=== PATIENT | female | born 1955 | race Two or more races ===

== ENCOUNTER 2022-12-16 02:11 | Inpatient (IN) | payer MEDICARE ==
[2022-12-16] MEDS ORDERED: oxyCODONE 5 MG Tab PO PRN (04:34)
[2022-12-16] MEDS ORDERED: Naloxone 0.4 MG/ML SDV IVPUSH PRN (04:34)
[2022-12-16] MEDS ORDERED: Ondansetron 4 MG Tab.DIS PO PRN (04:34)
[2022-12-16] MEDS ORDERED: Morphine 2 MG/ML SYRINGE IVPUSH PRN (04:34)
[2022-12-16] MEDS ORDERED: Albuterol 0.083% 2.5 MG/3 ML Neb Soln NEB PRN (04:34)
[2022-12-16] MEDS ORDERED: Docusate Sodium 100 MG Cap PO PRN (04:34)
[2022-12-16] MEDS ORDERED: LORazepam 2 MG/ML SDV IV PRN (04:34)
[2022-12-16] MEDS ORDERED: Sodium Chloride 0.9% 10 ML Syringe FLUSH PRN (04:34)
[2022-12-16] MEDS ORDERED: Bisacodyl 5 MG Tab PO PRN (04:34)
[2022-12-16] MEDS ORDERED: methylPREDNISolone Sodium Succinate 40 MG/1 ML SDV IVPUSH SCH (04:45)
[2022-12-16] MEDS: cefTRIAXone 1 GM in Sodium Chloride 0.9% 50 ML IV SCH (04:54)
[2022-12-16] MEDS ORDERED: Albuterol/Ipratropium 3.0-0.5 MG/3 ML Neb Soln NEB SCH ×2 (06:00→07:00)
[2022-12-16] MEDS ORDERED: Enoxaparin 40 MG/0.4 ML Syringe SUBCUT SCH (09:00)
[2022-12-16] MEDS: Nicotine 14 MG/24 Hr Patch TRDERM SCH ×2 (09:58→18:53)
[2022-12-16] MEDS: Enoxaparin 40 MG/0.4 ML Syringe SUBCUT SCH (09:59)
[2022-12-16] MEDS: Losartan 50 MG Tab PO SCH (09:59)
[2022-12-16] MEDS: Metoprolol Tartrate 25 MG Tab PO SCH (09:59)
[2022-12-16] MEDS: amLODIPine 5 MG Tab PO SCH (10:00)
[2022-12-16] MEDS ORDERED: Benzonatate 100 MG Cap PO PRN (10:01)
[2022-12-16 10:04] LABS: HEMATOCRIT 45.2 % (34.3-46.0); HEMOGLOBIN 15.6 g/dL (11.2-15.5); MEAN CORPUSCULAR HEMOGLOBIN 32.3 pg (31.6-35.5); MEAN CORPUSCULAR HGB CONC 34.5 g/dL (31.6-35.5); MEAN CORPUSCULAR VOLUME 93.6 fL (81.4-99.0); RED BLOOD CELL COUNT 4.83 M/uL (3.77-5.24)
[2022-12-16 10:34] LABS: ANION GAP 4.9 mmol/L (5.0-14.0); CALCIUM 8.3 mg/dL (8.5-10.1); CREATININE 0.8 mg/dL (0.6-1.0); EST CRCL DRUG DOSING (CG) 50.79 mL/min; POTASSIUM,K 3.9 mmol/L (3.6-5.2)
[2022-12-16 10:35] LABS: MAGNESIUM 1.8 mg/dL (1.8-2.4); TSH ULTRASENSITIVE 2.501 uIU/mL (0.358-3.740)
[2022-12-16] MEDS: Albuterol/Ipratropium 3.0-0.5 MG/3 ML Neb Soln NEB SCH ×3 (10:51→20:38)
[2022-12-16] MEDS: Azithromycin 500 MG in Sodium Chloride 0.9% 250 ML IV SCH (11:47)
[2022-12-16] MEDS: methylPREDNISolone Sodium Succinate 125 MG/2 ML SDV IVPUSH SCH ×3 (11:52→22:24)
[2022-12-16] MEDS: guaiFENesin 600 MG Tab.ER PO SCH ×2 (15:11→20:37)
[2022-12-16] MEDS ORDERED: diphenhydrAMINE 25 MG Cap PO PRN (17:22)
[2022-12-16] MEDS: Acetaminophen 325 MG Tab PO PRN (20:36)
[2022-12-16] MEDS ORDERED: diphenhydrAMINE 25 MG Cap PO SCH (21:00)
[2022-12-16] MEDS ORDERED: Levofloxacin/Dextrose 5%-Water 750 MG in Premix Bag 1 BAG IV SCH (21:00)
[2022-12-17] MEDS: methylPREDNISolone Sodium Succinate 125 MG/2 ML SDV IVPUSH SCH ×4 (04:45→22:37)
[2022-12-17] MEDS: cefTRIAXone 1 GM in Sodium Chloride 0.9% 50 ML IV SCH (04:48)
[2022-12-17] MEDS: Albuterol/Ipratropium 3.0-0.5 MG/3 ML Neb Soln NEB SCH ×4 (07:03→20:27)
[2022-12-17] MEDS: Codeine/guaiFENesin 10-100 MG/5 ML Syrup 5 ML Cup PO PRN ×2 (07:35→22:36)
[2022-12-17] MEDS: Losartan 50 MG Tab PO SCH (08:32)
[2022-12-17] MEDS: Metoprolol Tartrate 25 MG Tab PO SCH (08:32)
[2022-12-17] MEDS: amLODIPine 5 MG Tab PO SCH (08:32)
[2022-12-17] MEDS: Nicotine 14 MG/24 Hr Patch TRDERM SCH (08:33)
[2022-12-17] MEDS: Enoxaparin 40 MG/0.4 ML Syringe SUBCUT SCH (08:33)
[2022-12-17] MEDS: guaiFENesin 600 MG Tab.ER PO SCH ×3 (08:33→20:13)
[2022-12-17] MEDS: Azithromycin 500 MG in Sodium Chloride 0.9% 250 ML IV SCH (10:27)
[2022-12-17] MEDS: Acetaminophen 325 MG Tab PO PRN (11:49)
[2022-12-17] MEDS ORDERED: LORazepam 2 MG/ML SDV IV PRN (15:06)
[2022-12-17] MEDS: diphenhydrAMINE 25 MG/10 ML Cup PO SCH (20:13)
[2022-12-18] MEDS: cefTRIAXone 1 GM in Sodium Chloride 0.9% 50 ML IV SCH (04:03)
[2022-12-18] MEDS: Codeine/guaiFENesin 10-100 MG/5 ML Syrup 5 ML Cup PO PRN ×2 (04:04→10:29)
[2022-12-18] MEDS: methylPREDNISolone Sodium Succinate 125 MG/2 ML SDV IVPUSH SCH ×4 (04:18→23:13)
[2022-12-18] MEDS: Albuterol/Ipratropium 3.0-0.5 MG/3 ML Neb Soln NEB SCH ×4 (07:26→19:59)
[2022-12-18] MEDS: Losartan 50 MG Tab PO SCH (08:46)
[2022-12-18] MEDS: amLODIPine 5 MG Tab PO SCH (08:47)
[2022-12-18] MEDS: Enoxaparin 40 MG/0.4 ML Syringe SUBCUT SCH (08:47)
[2022-12-18] MEDS: Metoprolol Tartrate 25 MG Tab PO SCH (08:47)
[2022-12-18] MEDS: guaiFENesin 600 MG Tab.ER PO SCH ×3 (08:47→19:59)
[2022-12-18] MEDS: Nicotine 14 MG/24 Hr Patch TRDERM SCH (08:50)
[2022-12-18] MEDS: Azithromycin 500 MG in Sodium Chloride 0.9% 250 ML IV SCH (10:29)
[2022-12-18] MEDS: Pantoprazole 40 MG Tab.CR PO SCH (11:45)
[2022-12-18] MEDS: diphenhydrAMINE 25 MG/10 ML Cup PO SCH (19:59)
[2022-12-19] MEDS: cefTRIAXone 1 GM in Sodium Chloride 0.9% 50 ML IV SCH (05:04)
[2022-12-19] MEDS: methylPREDNISolone Sodium Succinate 125 MG/2 ML SDV IVPUSH SCH ×3 (05:04→22:45)
[2022-12-19] MEDS: Albuterol/Ipratropium 3.0-0.5 MG/3 ML Neb Soln NEB SCH ×4 (07:29→20:23)
[2022-12-19] MEDS: Pantoprazole 40 MG Tab.CR PO SCH (07:49)
[2022-12-19] MEDS: Losartan 50 MG Tab PO SCH (08:23)
[2022-12-19] MEDS: Nicotine 14 MG/24 Hr Patch TRDERM SCH (08:23)
[2022-12-19] MEDS: guaiFENesin 600 MG Tab.ER PO SCH ×3 (08:24→20:23)
[2022-12-19] MEDS: Enoxaparin 40 MG/0.4 ML Syringe SUBCUT SCH (08:24)
[2022-12-19] MEDS: Metoprolol Tartrate 25 MG Tab PO SCH (08:24)
[2022-12-19] MEDS: amLODIPine 5 MG Tab PO SCH (08:24)
[2022-12-19] MEDS: Azithromycin 500 MG in Sodium Chloride 0.9% 250 ML IV SCH (09:59)
[2022-12-19] MEDS: diphenhydrAMINE 25 MG/10 ML Cup PO SCH (20:25)
[2022-12-20] MEDS: cefTRIAXone 1 GM in Sodium Chloride 0.9% 50 ML IV SCH (05:07)
[2022-12-20] MEDS: Albuterol/Ipratropium 3.0-0.5 MG/3 ML Neb Soln NEB SCH ×2 (07:01→10:31)
[2022-12-20] MEDS: Pantoprazole 40 MG Tab.CR PO SCH (07:19)
[2022-12-20] MEDS: guaiFENesin 600 MG Tab.ER PO SCH (08:02)
[2022-12-20] MEDS: Enoxaparin 40 MG/0.4 ML Syringe SUBCUT SCH (08:02)
[2022-12-20] MEDS: Nicotine 14 MG/24 Hr Patch TRDERM SCH (08:02)
[2022-12-20] MEDS: amLODIPine 5 MG Tab PO SCH (08:49)
[2022-12-20] MEDS: Losartan 50 MG Tab PO SCH (08:49)
[2022-12-20] MEDS: Metoprolol Tartrate 25 MG Tab PO SCH (08:49)
[2022-12-20] MEDS: Azithromycin 500 MG in Sodium Chloride 0.9% 250 ML IV SCH (10:19)
[2022-12-20] MEDS: methylPREDNISolone Sodium Succinate 125 MG/2 ML SDV IVPUSH SCH (10:19)
== END 2022-12-20 10:57 | disposition home or self-care (01) | DRG 193 ==
LOC: JP.MS 03:46
PROVIDERS: ADMIT Internal Medicine; ATTEND Hospitalist
DX: J18.9 Pneumonia, unspecified organism (principal); J96.21 Acute and chronic respiratory failure with hypoxia; J44.1 Chronic obstructive pulmonary disease with (acute) exacerbation; J98.11 Atelectasis; J44.0 Chronic obstructive pulmonary disease with (acute) lower respiratory infection; E78.00 Pure hypercholesterolemia, unspecified; I10 Essential (primary) hypertension; K21.9 Gastro-esophageal reflux disease without esophagitis; M19.90 Unspecified osteoarthritis, unspecified site; F17.210 Nicotine dependence, cigarettes, uncomplicated; Z99.81 Dependence on supplemental oxygen; Z88.1 Allergy status to other antibiotic agents
CPT/HCPCS: 36415; 80048; 83735; 84100; 84443; 85027; 87070; 87205; 94640; 99222; 99232; 99238; A9270-GY; J0456; J0696; J1650; J2920; J2930; J3490; J7050; J7620